=== PATIENT | female | born 1980 | race Caucasian/White ===

== ENCOUNTER → 2017-12-26 | Outpatient (CLI) | payer OTHER ==
--- NOTE | 2017-12-26 11:40 | KCIC ---
Complete abdominal ultrasound 12/26/2017 INDICATION: Bloating. Early satiety. COMPARISON STUDY: None FINDINGS: The pancreas is partially visualized. Visualized portions of the pancreas are unremarkable in appearance. Common bile duct is nondilated measuring 2 mm in diameter. The gallbladder is surgically absent. There is borderline hepatomegaly with the right liver measuring 18.1 cm longitudinally. Hepatic echotexture appears to be grossly normal. No focal hepatic lesions are identified by ultrasound. No intrahepatic biliary dilatation is identified. The right kidney is normal in appearance measuring 11.9 cm in length. Visualized portions of the aorta and IVC are unremarkable. The spleen is top normal in size measuring 11.7 cm in maximal diameter by ultrasound. The left kidney measures 11.7 cm in length. There is an echogenic mass within the lateral aspect of the left kidney which measures approximately 1.2 cm. Left kidney is otherwise normal in appearance. No hydronephrosis or nephrolithiasis is seen involving either kidney. IMPRESSION: 1. 1.2 cm echogenic mass in the lateral left kidney. 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 However, given size greater than [address] cm further characterization with CT or MRI is recommended to exclude other solid neoplasms. 2. No other acute intra-abdominal abnormalities are identified. Electronically signed by: Tacho Barrow MD (12/26/2017 11:36 AM) [id number]
== END | disposition home or self-care (01) ==
LOC: KCIC US 08:51
PROVIDERS: ATTEND Internal Medicine
DX: N28.89 Other specified disorders of kidney and ureter (principal); R14.0 Abdominal distension (gaseous); R68.81 Early satiety
CPT/HCPCS: 76700